=== PATIENT | female | born 1960 | race Caucasian/White ===

== ENCOUNTER 2017-07-10 10:50 | Emergency (ER) | payer MEDICAID, OTHER ==
[~2017-07-10] VITALS: Ht 152.4 cm; Wt 74.0 kg
[2017-07-10 10:57] VITALS: BP 134/72; PULSE 59; RESP 16; TEMP 98.5; O2SAT 99
[2017-07-10] MEDS ORDERED: ASPI325T PO (11:08)
[2017-07-10] MEDS ORDERED: HYDR12.56 PO (11:08)
[2017-07-10] MEDS ORDERED: LISI-515 PO (11:08)
[2017-07-10] MEDS ORDERED: METO25TA3 PO (11:08)
[2017-07-10] MEDS ORDERED: AMLO5TAB2 PO (11:08)
[2017-07-10] MEDS ORDERED: ATOR40TA16 PO (11:08)
[2017-07-10] MEDS ORDERED: ESCI10TA PO (11:08)
[2017-07-10] MEDS ORDERED: TRAM50TA PO (11:42)
[2017-07-10] MEDS ORDERED: PENI500T PO (11:42)
--- NOTE | 2017-07-10 11:46 | PD ---
HPI Chief Complaint: Oral / Dental Pain or Problem Time Seen by Provider: 11:11 Travel History International Travel<30 days: No Contact w/Intl Traveler<30days: No Traveled to known affect area: No History of Present Illness HPI This patient complains of inflammation of her gingiva and dental pain. Duration 3 days. Severity is moderate. No fever or drainage. She is vacationing from [facility] Past Medical History Depression: Yes Cerebrovascular Accident: Yes Hypertension: Yes Influenza Vaccination: No Past Surgical History Genitourinary Surgery: Yes (RIGHT KIDNEY REMOVED) Hysterectomy: Yes Social History Alcohol Use: Yes (OCCAS) Tobacco Use: No Substance Use: No Allergies-Medications (Allergen,Severity, Reaction): Coded Allergies: No Known Allergies (Verified Allergy, Unknown, 07/10/17) Reported Meds & Prescriptions Reported Meds & Active Scripts Active Tramadol (Tramadol HCl) 50 Mg Tab 50 Mg PO Q6H PRN Penicillin V Potassium 500 Mg Tab 500 Mg PO Q6H 7 Days Reported Metoprolol Tartrate 25 Mg Tab 25 Mg PO BID Lisinopril 20 Mg Tab 25 Mg PO DAILY Hydrochlorothiazide 12.5 Mg Tab 12.5 Mg PO DAILY Escitalopram (Escitalopram Oxalate) 10 Mg Tab 10 Mg PO DAILY Atorvastatin (Atorvastatin Calcium) 40 Mg Tab 40 Mg PO HS Amlodipine (Amlodipine Besylate) 5 Mg Tab 5 Mg PO DAILY Aspirin 325 Mg Tab 325 Mg PO DAILY Review of Systems General / Constitutional: No: Fever HENT: No: Headaches Cardiovascular: No: Chest Pain or Discomfort Physical Exam Narrative Oral cavity: There is some inflammation and swelling of the gingiva adjacent to tooth #3. There is a large filling in that tooth. No active drainage or obvious fluctuance. NECK: Symmetrical appearance, midline trachea. No mass or crepitus. Thyroid without enlargement, tenderness, or mass. SKIN: Focused skin assessment reveals no rash or ulcers. Skin is warm and dry. Palpation shows no induration or nodules. Data Data Last Documented VS Vital Signs Date Time Temp Pulse Resp B/P (MAP) Pulse Ox O2 Delivery O2 Flow Rate FiO2 07/10/17 10:57 98.5 59 16 134/72 (92) 99 MDM Medical Decision Making Medical Screen Exam Complete: Yes Emergency Medical Condition: Yes Medical Record Reviewed: Yes Differential Diagnosis Gingivitis, dental cavity, abscess Narrative Course I have reviewed the patient's electronic medical record. I wrote her a course of penicillin as well as some tramadol for symptom relief She will need to get dental follow-up Nothing at this point to incise and drain Diagnosis Primary Impression: Gingivitis Additional Impression: Pain, dental Additional Instructions: The patient was advised to follow up with their dentist and return if they worsen. The patient was warned about potential sedation for the medications they will receive on prescription. Med/Other Pt SpecificInfo: Prescription(s) given Scripts Tramadol (Tramadol) 50 Mg Tab 50 MG PO Q6H Y for PAIN, #20 TAB 0 Refills Prov: Tone Fabian MD 07/10/17 Penicillin V Potassium (Penicillin V Potassium) 500 Mg Tab 500 MG PO Q6H for Infection for 7 Days, TAB 0 Refills Prov: Tone Fabian MD 07/10/17 Disposition: 01 DISCHARGE HOME Condition: Stable Tone Fabian MD Jul 10, 2017 11:46
== END 2017-07-10 12:07 | disposition home or self-care (01) ==
LOC: PHED 10:50
DX: K05.10 Chronic gingivitis, plaque induced (principal)
CPT/HCPCS: 99284